=== PATIENT | male | born 2005 | race Caucasian/White ===

== ENCOUNTER 2023-08-10 20:47 | Emergency (ER) | payer OTHER, SELFPAY ==
[2023-08-10 20:49] VITALS: BP 152/88; PULSE 97; RESP 15; TEMP 36.6; O2SAT 99; BMI 20.8
--- NOTE | 2023-08-10 21:06 | ED.VIS.CHEST ---
HPI History of Present Illness Chief Complaint: Chest Other Detail of Chief Complaint: Epigastric pain that sharp and radiates upward into his chest Informant: patient Onset/Context/Timing Onset: Hours Activity at onset: sudden Timing: Continuous Quality: Positive for Aching and Sharp Location: - (Subxiphoid radiating into his chest) Current Severity: Mild Maximum Severity: Moderate Worsened By: Nothing Relieved By: Nothing Associated Symptoms: Positive for Dyspnea; Negative for Nausea, Vomiting, Diaphoresis, Cough, Fever, Lightheadedness, Acid Reflux or Palpitations Narrative Narrative: Patient is a 18-year-old male. He admits he vapes a lot. He states he was in bed. He was lying doing nothing when he developed tightness in his chest with shortness of breath and sharp subxiphoid pain radiating upwards into his chest. The pain did not radiate to his shoulders, arm, neck or jaw. The pain did not radiate through to his back. He states he ate pizza prior to this. He does report intolerance to greasy foods. He does not know if there is a family history of cholelithiasis or cholecystitis. He denies history of hiatal hernia. He denies history of reflux. He denies black or maroon-colored stool. He has no history of VTE. He has no risk factors for VTE. He denies leg pain, swelling discoloration. He denies upper respiratory tract infectious symptoms. He denies rash. He denies myalgia or arthralgias. Denies joint swelling. Prior Similar Symptoms: No Recent Illness/Hospitalization: No CVD Risk Factors: Negative for Hypertension, Diabetes, Hypercholesterolemia, Family History 1' </=55 or Smoking PE Risk Factors: Negative for Recent Travel/Surgery, Recent Immobilization, Prior DVT or PE, Cancer or OCP + Smoking + >/=35 TAD Risk Factors: Negative for Marfan's Syndrome, Hypertension or Family History PFSH PFSH Medical History no medical history no medical history Home Medications famotidine 40 mg tablet (Pepcid) 40 mg PO DAILY #30 tabs 08/10/23 [Rx Last Taken Unknown] Allergy/AdvReac Type Severity Reaction Status Date / Time Penicillins AdvReac Unknown PT UNSURE Verified 08/10/23 20:53 OF REACTION Surgical History no surgical history no surgical history Social History (Updated 08/10/23 @ 21:[address] Connor Holloway MD) Smoking Status: Current every day smoker tobacco type: e-cigarettes ROS ROS ED Constitutional Constitutional ED: Denies chills, fever(s), subjective or sweats Eyes Eyes: Reports none; Denies blurry vision or change in vision ENT ENT ED: Denies ear pain, rhinorrhea or sore throat Cardiovascular Cardiovascular: Reports as per HPI and chest pain; Denies orthopnea, palpitations, paroxysmal nocturnal dyspnea or racing heartbeat Respiratory/Chest Respiratory/Chest: Denies cough, dyspnea, dyspnea on exertion, orthopnea or paroxysmal nocturnal dyspnea Gastrointestinal Gastrointestinal: Reports abdominal pain; Denies constipation, diarrhea, melena, nausea or vomiting Genitourinary Genitourinary ED: Denies dysuria, hematuria or urinary frequency Musculoskeletal Musculoskeletal: Denies arthralgias, back pain or myalgias Integumentary Denies rash Neurologic Neurologic: Denies headache(s) or paresthesias Endocrine Endocrinology: Denies cold intolerance or heat intolerance Hematologic/Lymphatic Hematologic/Lymphatic: Denies easy bleeding or easy bruising EXAM Physical Exam Const Vital Signs: 08/10/23 20:49 08/10/23 21:18 Temperature 97.9 F Temperature Source Temporal Pulse Rate 97 Respiratory Rate 15 Respiratory Effort Normal Non-Labored Blood Pressure 152/88 H Blood Pressure Mean 109 Pulse Ox 99 Oxygen Delivery Method Room Air Positive well nourished, well developed and obese Constitutional Narrative: Patient appears flushed. General Appearance ED: well developed and NAD; Negative for pallor Nutritional Appearance: obese HEENT Reports TM's clear and moist mucous membranes normocephalic and atraumatic Tympanic Membrane ED: Yes TM's clear Eyes PERRL and EOMs intact bilaterally General Eye ED: Negative for pale conjunctiva or scleral icterus Neck no lymphadenopathy, supple and no JVD Chest Wall inspection of chest normal and palpation of chest normal Resp normal respiratory effort and clear to auscultation bilaterally Cardio regular rate, regular rhythm, S1 normal heart sound, S2 normal heart sound and no murmurs Peripheral Pulses: pulses 2+ throughout GI normal to inspection, nondistended, normoactive bowel sounds, soft to palpation, non-distended and no masses; Negative for non-tender or hepatosplenomegaly Back/Spine no CVA tenderness and no thoracic nor lumbar tenderness Extremity normal to inspection General Extremety ED: Negative for edema or pulses abnormal General Extremity: Negative for edema or pulses abnormal Neuro oriented x3, CN's II-XII intact bilaterally, no sensory deficits noted and gait normal Sensorium / Orientation: awake and alert Psych mental status grossly normal Skin no rashes or lesions noted and no wounds General Skin Exam: Negative for jaundice or pallor MDM MDM MDM Narrative Medical decision making narrative: Patient is PERC negative. Wells score is less than 3. This may represent GERD, esophageal spasm, peptic ulcer disease. This may also represent biliary colic. Plan is GI cocktail if this alleviates his pain and chest x-ray is normal will discharge with prescription for Pepcid. If the GI cocktail does not alleviate his pain with him having significant tenderness in the epigastric right upper quadrant will obtain liver enzymes, CBC and lipase. Radiography Chest X-Ray - ED: 2 View and Read by ED Physician (Independently interpreted by me at 2124 as negative. Cardiac silhouette and size normal. Slight hyperaeration. Lung parenchyma normal. No into pneumothorax. No evidence of pneumomediastinum. Perihilar regions normal. Osseous structures unremarkable.) Treatment and Re-Evaluation :: Patient was reassessed at 2124. His pain is resolved. Was informed that his chest x-ray is normal. Discharge Plan Triage Chief Complaint: Chest Other ED Provider: Holloway,Connor Dx/Rx/DC Orders Clinical Impression: Chest pain due to GERD Instructions: GERD Lifestyle Changes, ED GERD (Adult) Prescriptions: New famotidine [Pepcid] 40 mg tablet 40 mg PO DAILY Qty: 30 0RF Referrals: Maribel Thayer [Non-Staff] - 1-2 Weeks Disposition Disposition: Home, Self Care
--- NOTE | 2023-08-10 21:11 | RAD_ITS ---
EXAM: XR CHEST, 2 VIEWS CLINICAL INDICATION: Epigastric and chest pain TECHNIQUE: Frontal and lateral views of the chest. COMPARISON: No relevant prior studies available. FINDINGS: LUNGS AND PLEURAL SPACES: Unremarkable. No consolidation or edema. No pneumothorax. No effusion. HEART: Unremarkable. Cardiac silhouette not enlarged. MEDIASTINUM: Central airways and mediastinal contour are unremarkable. BONES/JOINTS: Unremarkable. No acute fracture. SOFT TISSUES: Unremarkable. RAD/Chest PA and Lateral IMPRESSION: No radiographic evidence of acute cardiopulmonary disease. Electronically Signed: Demarcus Godoy MD at 21:28 EST ,
[2023-08-10] MEDS: Mag Hydrox/Al Hydrox/Simeth 30 ML UDC PO (21:16)
== END 2023-08-10 21:46 | disposition home or self-care (01) ==
LOC: ED 21:45
PROVIDERS: Emergency Provider Emergency Medicine; Visit Provider Emergency Medicine
DX: R07.9 Chest pain, unspecified (principal); K21.9 Gastro-esophageal reflux disease without esophagitis; F17.290 Nicotine dependence, other tobacco product, uncomplicated
CPT/HCPCS: 71046; 99282

== ENCOUNTER 2025-02-11 13:45 | Emergency (ER) | payer OTHER, SELFPAY ==
[2025-02-11 13:46] VITALS: BP 163/107; PULSE 73; RESP 16; TEMP 36.6; O2SAT 98; BMI 20.8
[2025-02-11] MEDS: Fluorescein 1 MG STRIP 1 STRIP LEFT EYE (14:18)
--- OUTSIDE RECORDS SUMMARY | 2025-02-11 14:18 | XMS RPT_ITS | CCD ---
Author Organization [facility] Care Team Providers Care Mechanical Maintenance Technician Name Role Phone Connor Holloway Attending Unavailable Care Physician, No Primary Primary Care Unava ilable Unavailable Primary Care Provider Unavailabl e Allergies Allergy Classification Reported Allergen(s) Allergy Type Date of Onset Reaction(s) Facility (2 sources) Penicillins; Translations: [PENICILLINS] Drug allergy (disorder) 08-10-2023 [facility] Repository (2 sources) Penicillins Drug Allergy 12-15-2023 Rash [facility] Medications Current Medications Medication Drug Class(es) Dates Sig (Normalized) Sig (Original) ketoconazole 20 mg/ml medicated shampoo (2 sources) Azole Antifungal Start: 12-15-2023 End: 12-18-2023 ketoconazole (NIZORAL) 2 % shampoo Apply to affected area once daily for 3 days. Leave on for 5 minutes then wash off. 120 mL 1 12/15/2023 12/18/2023 Active Start: 12-15-2023 End: 12-15-2023 ketoconazole (NIZORAL) 2 % s hampoo Apply to affected area every 72 hours. 120 mL 1 12/15/2023 12/15/2023 Discontinued predniSONE 10 mg oral tablet (2 sources) Start: 04-17-2024 End: 04-26-2024 predniSONE (DELTASONE) 10 mg tablet Indications: Rash Take 4 tabs daily for 3 days, then 2 tabs daily for 3 days, then 1 tab daily for 3 days with food. 21 tablet 04/17/2024 04/26/2024 Active Problems Problem Classification Problem Date Documented Da te Episodic/Chronic Abdominal pain (1 source) Epigastric pain; Translations: [Epigastric pain] Onset: 08-17-2023 Episodic Other skin disorders (2 sources) Eruption; Translations: [Rash and other nonspecific skin eruption] 12-15-2023 Episodic Results Test Name Value Interpretation Reference Range Good Rob 04-17-2024 CNOV Office Visit ([facility] ) JONG SOLIS ([id number]) 1 M Date Time Provider Department 04/17/24 6:00 PM DIANNE MARTINEZ [facility] During your visit today, we recorded the following information about you: Temperature Pulse Respiration Blood pressure 98.3 degrees 78/minute 16/minute 134/76 Weight 70 kg Dianne Martinez APRN.CNP 04/17/2024 6:17 PM Signed Subjective HPI HPI Jong Solis is a 19 year old male who presents today for CC of itchy rash on torso. This started 2 months ago. Has tried nothing for relief. Symptoms are worsened by while at work, improves after work out of heat. Denies fever, uri s/s. .Patient presents with: Rash: all over,itching x 2 months No past medical history on file. No past surgical history on file. ALLERGIES Penicillins MEDICATIONS predniSONE (DELTASONE) 10 mg tablet Take 4 tabs daily for 3 days, then 2 tabs daily for 3 days, then 1 tab daily for 3 days with food. No family history on file. Social History Tobacco Use Smoking status: Every Day Types: Cigarettes Smokeless tobacco: Never ROS Objective Blood pressure 134/76, pulse 78, temperature 36.8 ?C (98.3 ?F), resp. rate 16, weight 70 kg (154 lb 5.2 oz), SpO2 98%. Physical Exam Constitutional: General: He is not in acute distress. Appearance: He is not toxic-appearing or diaphoretic. HENT: Head: Normocephalic and atraumatic. Pulmonary: Effort: Pulmonary effort is normal. No accessory muscle usage or respiratory distress. Skin: Neurological: Mental Status: He is alert and oriented to person, place, and time. ASSESSMENT/PLAN: 1. Rash - ICD9: 782.1, ICD10: R21 Possible allergy to work shirt -use medication as prescribed -follow up if symptoms persist, worsen, change - PREDNISONE 10 MG TABLET Dianne Martinez APRN.[employer]BER Allergies As of Date: 04/17/2024 Noted Allergy Reaction PENICILLINS 12/15/2023 2 - Rash Date Reviewed: 04/17/2024 Reviewed by: Barbara Palmer MA - Fully Assessed Reason for Visit: Rash [1087] Cmt: all over,itching x 2 months Primary Visit Diagnosis:Rash [R21] Order(s):predniSONE (DELTASONE) 10 mg tabletTake 4 tabs daily for 3 days, then 2 tabs daily for 3 days, then 1 tab daily for 3 days with food.Disp: 21 tabletRfl: 0 Prescriptions as of 04/17/2024 - predniSONE (DELTASONE) 10 mg tablet Take 4 tabs daily for 3 days, then 2 tabs daily for 3 days, then 1 tab daily for 3 days with food. Problem List As Of Date: 04/17/2024 (None) Prescriptions ordered this encounter Disp Refills Start End PREDNISONE 10 MG TABLET 21 t* 0 04/17/2024 04/17/2024 Sig: Take 4 tabs daily for 3 days, then 2 tabs daily for 3 days, then 1 tab daily for 3 days with food. PREDNISONE 10 MG TABLET 21 t* 0 04/17/2024 04/26/2024 Sig: Take 4 tabs daily for 3 days, then 2 tabs daily for 3 days, then 1 tab daily for 3 days with food. Medications Discontinued During This Encounter Prescriptions - predniSONE (DELTASONE) 10 mg tablet (Discontinued) Take 4 tabs daily for 3 days, then 2 tabs daily for 3 days, then 1 tab daily for 3 days with food. Encounter Status:Closed by DIANNE MARTINEZ on 04/17/24 [facility] Liane 12-15-2023 CNOV Office Visit ([facility] ) JONG SOLIS ([id number]) 1 M Date Time Provider Department 12/15/23 6:45 PM PRABHU HERRING [facility] During your visit today, we recorded the following information about you: Temperature Pulse Respiration Blood pressure 97.6 degrees 80/minute 16/minute 142/84 Weight 65 kg Prabhu Herring PA-C 12/15/2023 6:50 PM Signed [facility] [address] [place] [address], [address] [place] [address] Prabhu Herring PA-C 12/15/2023 6:59 PM Signed This note was created using [email or web address]. Subjective Jong Solis is a 18 year old male. HPI Presents with a rash on his back and abdomen over the past 2 months. He states is not itchy or bothering him. The past few days it has started to spread over his abdomen. He denies any known allergies. He denies any new foods. He states he does switch soap periodically but cannot remember specifically a new 1. No history of eczema or psoriasis. 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 Review of Systems Skin: Positive for rash. All other systems reviewed and are negative. History reviewed. No pertinent past medical history. Current Outpatient Medications Medication Sig Dispense Refill ketoconazole (NIZORAL) 2 % shampoo Apply to affected area every 72 hours. 120 mL 1 No current facility-administered medications for this visit. No past surgical history on file. No family history on file. Social History Tobacco Use Smoking status: Every Day Types: Cigarettes Smokeless tobacco: Never Objective BP 142/84 Pulse 80 Temp 36.4 ?C (97.6 ?F) (Tympanic) Resp 16 Wt 65 kg (143 lb 4.8 oz) SpO2 99% Physical Exam Vitals reviewed. Constitutional: Appearance: Normal appearance. HENT: Head: Normocephalic and atraumatic. Skin: General: Skin is warm and dry. Findings: Rash present. Comments: Patient has pink oval slightly raised areas coalesced diffusely on his back and starting on his abdomen and chest. No vesicles. No petechia or purpura. Neurological: Mental Status: He is alert. Assessment and Plan ASSESSMENT/PLAN: 1. Rash - ICD9: 782.1, ICD10: R21 Prescription for ketoconazole shampoo sent as this is likely tinea versicolor. Recommend follow-up with dermatology if it does not resolve. Patient agreeable with plan. - CONSULT TO DERMATOLOGY Prabhu Herring PA-C Allergies As of Date: 12/15/2023 Noted Allergy Reaction PENICILLINS 12/15/2023 2 - Rash Date Reviewed: 12/15/2023 Reviewed by: Alicia Sawyer LPN - Fully Assessed Reason for Visit: Rash [1087] Cmt: Rash on front and back of torso x several months Primary Visit Diagnosis:Rash [R21] Order(s):CONSULT TO DERMATOLOGY [9006] Order #: [id number]: 1 FUTURE ketoconazole (NIZORAL) 2 % shampooApply to affected area once daily for 3 days. Leave on for 5 minutes then wash off.Disp: 120 mLRfl: 1 Prescriptions as of 12/15/2023 - ketoconazole (NIZORAL) 2 % shampoo Apply to affected area once daily for 3 days. Leave on for 5 minutes then wash off. Problem List As Of Date: 12/15/2023 (None) Other instructions from your clinician: [facility] [address] [place] [address], [address] [place] [address] Prescriptions ordered this encounter Disp Refills Start End KETOCONAZOLE 2 % SHAMPOO 120 * 1 12/15/2023 12/15/2023 Route: TOPICAL Sig: Apply to affected area every 72 hours. KETOCONAZOLE 2 % SHAMPOO 120 * 1 12/15/2023 12/18/2023 Route: TOPICAL Sig: Apply to affected area once daily for 3 days. Leave on for 5 minutes then wash off. Medications Discontinued During This Encounter Prescriptions - ketoconazole (NIZORAL) 2 % shampoo (Discontinued) Apply to affected area every 72 hours. Encounter Status:Closed by PRABHU HERRIGN on 12/15/23 Normal [facility] Chest PA and Lateralon 08-10 Chest PA and Lateral [facility] [address] [place] [address] Chest PA and Lateral MR#: [id number] Acct: [id number] Name: JONG SOLIS Rep #: [id number] : 2005 M 18 From: Demarcus Godoy MD PCP: Status: PRE ER Study: Chest PA and Lateral Date of Exam: 08/10/23 Exam# [id number] Ordering Dr: Connor Holloway MD [id number] EXAM: XR CHEST, 2 VIEWS CLINICAL INDICATION: Epigastric and chest pain TECHNIQUE: Frontal and lateral views of the chest. COMPARISON: No relevant prior studies available. FINDINGS: LUNGS AND PLEURAL SPACES: Unremarkable. No consolidation or edema. No pneumothorax. No effusion. HEART: Unremarkable. Cardiac silhouette not enlarged. MEDIASTINUM: Central airways and mediastinal contour are unremarkable. BONES/JOINTS: Unremarkable. No acute fracture. SOFT TISSUES: Unremarkable. RAD/Chest PA and Lateral IMPRESSION: No radiographic evidence of acute cardiopulmonary disease. Electronically Signed: Demarcus Godoy MD at 21:28 EST , CC: Dr. Connor Holloway MD Engagement Manager: Signed Normal [facility] Emergency Department Summary on 08-10-2023 Emergency Department Summary [facility] System Medical Records Department [address] [place] [address] Emergency Department Summary 08/10/23 MR#: [id number] Acct: [id number] Name: JONG SOLIS Rep #: [id number] : 2005 18 From: Connor Holloway MD PCP: Status:PRE ER Location: ED HPI History of Present Illness Chief Complaint: Chest Other Detail of Chief Complaint: Epigastric pain that sharp and radiates upward into his chest Informant: patient Onset/Context/Timing Onset: Hours Activity at onset: sudden Timing: Continuous Quality: Positive for Aching and Sharp Location: - (Subxiphoid radiating into his chest) Current Severity: Mild Maximum Severity: Moderate Worsened By: Nothing Relieved By: Nothing Associated Symptoms: Positive for Dyspnea; Negative for Nausea, Vomiting, Diaphoresis, Cough, Fever, Lightheadedness, Acid Reflux or Palpitations Narrative Narrative: Patient is a 18-year-old male. He admits he vapes a lot. He states he was in bed. He was lying doing nothing when he developed tightness in his chest with shortness of breath and sharp subxiphoid pain radiating upwards into his chest. The pain did not radiate to his shoulders, arm, neck or jaw. The pain did not radiate through to his back. He states he ate pizza prior to this. He does report intolerance to greasy foods. He does not know if there is a family history of cholelithiasis or cholecystitis. He denies history of hiatal hernia. He denies history of reflux. He denies black or maroon-colored stool. He has no history of VTE. He has no risk factors for VTE. He denies leg pain, swelling discoloration. He denies upper respiratory tract infectious symptoms. He denies rash. He denies myalgia or arthralgias. Denies joint swelling. Prior Similar Symptoms: No Recent Illness/Hospitalizatio n: No CVD Risk Factors: Negative for Hypertension, Diabetes, Hypercholesterolemia, Family History 1' or Smoking PE Risk Factors: Negative for Recent Travel/Surgery, Recent Immobilization, Prior DVT or PE, Cancer or OCP + Smoking + >/=35 TAD Risk Factors: Negative for Marfan's Syndrome, Hypertension or Family History PFSH PFSH Medical History no medical history no medical history Home Medications famotidine 40 mg tablet (Pepcid) 40 mg PO DAILY #30 tabs 08/10/23 [Rx Last Taken Unknown] Allergy/AdvReac Type Severity Reaction Status Date / Time Penicillins AdvReac Unknown PT UNSURE Verified 08/10/23 20:53 OF REACTION Surgical History no surgical history no surgical history Social History (Updated 08/10/23 @ 21:[address] Connor Holloway MD) Smoking Status: Current every day smoker tobacco type: e-cigarettes ROS ROS ED Constitutional Constitutional ED: Denies chills, fever(s), subjective or sweats Eyes Eyes: Reports none; Denies blurry vision or change in vision ENT ENT ED: Denies ear pain, rhinorrhea or sore throat Cardiovascular Cardiovascular: Reports as per HPI and chest pain; Denies orthopnea, palpitations, paroxysmal nocturnal dyspnea or racing heartbeat Respiratory/Chest Respiratory/Chest: Denies cough, dyspnea, dyspnea on exertion, orthopnea or paroxysmal nocturnal dyspnea Gastrointestinal Gastrointestinal: Reports abdominal pain; Denies constipation, diarrhea, melena, nausea or vomiting Genitourinary Genitourinary ED: Denies dysuria, hematuria or urinary frequency Musculoskeletal Musculoskeletal: Denies arthralgias, back pain or myalgias Integumentary Denies rash Neurologic Neurologic: Denies headache(s) or paresthesias Endocrine Endocrinology: Denies cold intolerance or heat intolerance Hematologic/Lymphatic Hematologic/Lymphatic: Denies easy bleeding or easy bruising EXAM Physical Exam Const Vital Signs: 08/10/23 20:49 08/10/23 21:18 Temperature 97.9 F Temperature Source Temporal Pulse Rate 97 Respiratory Rate 15 Respiratory Effort Normal Non-Labored Blood Pressure 152/88 H Blood Pressure Mean 109 Pulse Ox 99 Oxygen Delivery Method Room Air Positive well nourished, well developed and obese Constitutional Narrative: Patient appears flushed. General Appearance ED: well developed and NAD; Negative for pallor Nutritional Appearance: obese HEENT Reports TM's clear and moist mucous membranes normocephalic and atraumatic Tympanic Membrane ED: Yes TM's clear Eyes PERRL and EOMs intact bilaterally General Eye ED: Negative for pale conjunctiva or scleral icterus Neck no lymphadenopathy, supple and no JVD Chest Wall inspection of chest normal and palpation of chest normal Resp normal respiratory effort and clear to auscultation bilaterally Cardio regular rate, regular rhythm, S1 normal heart sound, S2 normal heart sound and no murmurs Peripheral Pulses: pulses 2+ throughout GI normal to inspection, nondistended, normoactive bowel sound (more content not included)... Normal [facility] Vital Signs Date Time Vital Sign Value Performing Clinician Daniela sommers 04-17-2024 18:02-0400 Body temperature 98.29 [degF] Dianne Martinez APRN.CNP Work Phone: [facility] 04-17-2024 18:02-0400 Body weight 70 kg Dianne Martinez APRN.CNP Work Phone: [facility] 04-17-2024 18:02-0400 Diastolic blood pressure 76 mm[Hg] Dianne Martinez OVERHAULER HELPER.[employer] CLE[employer]ER [employer]UMBER Work Phone: [facility] 04-17-2024 18:02-0400 Heart rate 78 /min Dianne Martinez OVERHAULER HELPER.[employer] CLE[employer]UMBER Work Phone: [facility] 04-17-2024 18:02-0400 Respiratory rate 16 /min Dianne Martinez OVERHAULER HELPER.[employer] CLE[employer]UMBER Work Phone: [facility] 04-17-2024 18:02-0400 SaO2% (BldA) [Mass fraction] 98 % Dianne Martinez OVERHAULER HELPER.[employer] CLE[employer]ER [employer]UMBER Work Phone: [facility] 04-17-2024 18:02-0400 Systolic blood pressure 134 mm[Hg] Dianne Martinez OVERHAULER HELPER.DR[employer] CLEANER [employer]UMBER Work Phone: [facility] 12-15-2023 18:35-0400 Body temperature 97.59 [degF] Prabhu Athy PA-C Work Phone: [facility] 12-15-2023 18:35-0400 Body weight 65 kg Prabhu Athy PA-C Work Phone: [facility] 12-15-2023 18:35-0400 Diastolic blood pressure 84 mm[Hg] Prabhu Athy PA-C Work Phone: [facility] 12-15-2023 18:35-0400 Heart rate 80 /min Parbhu Athy PA-C Work Phone: [facility] 12-15-2023 18:35-0400 Respiratory rate 16 /min Prabhu Athy PA-C Work Phone: [facility] 12-15-2023 18:35-0400 SaO2% (BldA) [Mass fraction] 99 % Prabhu Athy PA-C Work Phone: [facility] 12-15-2023 18:35-0400 Systolic blood pressure 142 mm[Hg] Prabhu Athy PA-C Work Phone: [facility] Encounters Encounter Date Encounter Type Care Provider Facility Start: 04-17-2024 End: 04-17-2024 ambulatory Facility:[facility] Start: 04-17-2024 End: 04-17-2024 Patient encounter procedure Dianne Martinez APRN.DR[employer] CLEANER [employer]UMBER Work Phone: [facility] Comment on above: Rash (Primary Dx) Start: 12-15-2023 End: 12-15-2023 ambulatory Facility:[facility] Start: 12-15-2023 End: 12-15-2023 Patient encounter procedure Prabhu Herring PA-C Work Phone: [facility] Comment on above: Rash (Primary Dx) Start: 08-10-2023 End: 08-10-2023 Emergency department patient visit [facility] Facility:[facility] Plan of Treatment Date Care Activity Detail Author Start: 04-23-2024 Influenza vaccination [facility] Start: 08-23-2023 Behavioral Health Screening Behavioral Health Screening [facility] Start: 04-23-2023 Covid-19 Vaccine ( season) Covid-19 Vaccine ( season) [facility] Start: 2022 Hepatitis B Vaccine (1 of 3 - 19+ 3-dose series) Hepatitis B Vaccine (1 of 3 - 19+ 3-dose series) [facility] Start: 2022 Urine microalbumin profile DTa P,Tdap,Td Vaccine (1 - Tdap) [facility] Start: 2021 Anxiety Screening Anxiety Screening [facility] Start: 2021 Depression Screening Depression Scre ening [facility] Start: 2021 Hepatitis C screening Hepatitis C Sc reening [facility] Start: 2021 HIV screening HIV Screening [facility] Start: 2019 Meningococcal B Vacc ine: Consider Based On Risk (1 of 2 - Patient Seeks Protection) Meningococcal B Vaccine: Consider Based On Risk (1 of 2 - Patient Seeks Protection) [facility] Start: 2018 HPV Vaccine (1 - Mal e 3-dose series) HPV Vaccine (1 - Male 3-dose series) [facility] Start: 2017 Peds To Adult Transi tion Annual Assessment Peds To Adult Transition Annual Assessment [facility] Start: 2015 Peds To Adult Transi tion Initial Discussion Peds To Adult Transition Initial Discussion [facility] Start: 2009 Pneumococcal vaccination Pneum ococcal Vaccine (1 of 2 - PCV) [facility] Payers Date Payer Category Payer Self-pay 2022 Unknown MMO [employer] PPO [id number] 2022-Present [phone] [address] [place] [address] PPO [id number] 2022 Unknown [id number] Unknown [id number] Social History Date Type Detail Facility Start: 12-15-2023 Tobacco smoking stat [facility] Smokes tobacco daily [facility] History of tobacco use Cigarette Smoker C [facility] Start: 12-15-2023 Tobacco use and exposure Smoke less tobacco non-user [facility] Start: 12-15-2023 End: 04-17-2024 History of Social function [facility] Start: 12-15-2023 End: 04-17-2024 Tobacco use panel [facility] Start: 2005 Sex Assigned At Not on file C [facility] Progress note 04-17-2024 Note Date & Type Note Facility 04-17-2024 Note HNO ID: [id number] Author: DIANNE MARTINEZ APRN.[employer] Service: ? Author Type: Nurse Practitioner Type: Progress Notes Filed: 04/17/2024 18:17 Note Text: Subjective HPI HPI Jong Solis is a 19 year old male who presents today for CC of itchy rash on torso. This started 2 months ago. Has tried nothing for relief. Symptoms are worsened by while at work, improves after work out of heat. Denies fever, uri s/s. .Patient presents with: Rash: all over,itching x 2 months No past medical history on file. No past surgical history on file. ALLERGIES Penicillins MEDICATIONS predniSONE (DELTASONE) 10 mg tablet Take 4 tabs daily for 3 days, then 2 tabs daily for 3 days, then 1 tab daily for 3 days with food. No family history on file. Social History Tobacco Use Smoking status: Every Day Types: Cigarettes Smokeless tobacco: Never ROS Objective Blood pressure 134/76, pulse 78, temperature 36.8 ?C (98.3 ?F), resp. rate 16, weight 70 kg (154 lb 5.2 oz), SpO2 98%. Physical Exam Constitutional: General: He is not in acute distress. Appearance: He is not toxic-appearing or diaphoretic. HENT: Head: Normocephalic and atraumatic. Pulmonary: Effort: Pulmonary effort is normal. No accessory muscle usage or respiratory distress. Skin: Neurological: Mental Status: He is alert and oriented to person, place, and time. ASSESSMENT/PLAN: 1. Rash - ICD9: 782.1, ICD10: R21 Possible allergy to work shirt -use medication as prescribed -follow up if symptoms persist, worsen, change - PREDNISONE 10 MG TABLET Dianne Martinez APRN.[facility] History of Present illness Narrative 04-17-2024 Dianne Martinez APRN.KATHERIN - 04/17/2024 6:14 PM EDT Note Date & Type Note Facility 04-17-2024 History of Presen t illness Narrative Images from the original note were not included. Subjective HPI HPI Jong Solis is a 19 year old male who presents today for CC of itchy rash on torso. This started 2 months ago. Has tried nothing for relief. Symptoms are worsened by while at work, improves after work out of heat. Denies fever, uri s/s. .Patient presents with: Rash: all over,itching x 2 months No past medical history on file. No past surgical history on file. ALLERGIES Penicillins MEDICATIONS predniSONE (DELTASONE) 10 mg tablet Take 4 tabs daily for 3 days, then 2 tabs daily for 3 days, then 1 tab daily for 3 days with food. No family history on file. Social History Tobacco Use Smoking status: Every Day Types: Cigarettes Smokeless tobacco: Never ROS Objective Blood pressure 134/76, pulse 78, temperature 36.8 C (98.3 F), resp. rate 16, weight 70 kg (154 lb 5.2 oz), SpO2 98%. Physical Exam Constitutional: General: He is not in acute distress. Appearance: He is not toxic-appearing or diaphoretic. HENT: Head: Normocephalic and atraumatic. Pulmonary: Effort: Pulmonary effort is normal. No accessory muscle usage or respiratory distress. Skin: Neurological: Mental Status: He is alert and oriented to person, place, and time. ASSESSMENT/PLAN: 1. Rash - ICD9: 782.1, ICD10: R21 Possible allergy to work shirt -use medication as prescribed -follow up if symptoms persist, worsen, change - PREDNISONE 10 MG TABLET Dianne Martinez APRN.[employer] documented in this encounter [facility] Progress note 12-15-2023 Note Date & Type Note Facility 12-15-2023 Note HNO ID: [id number] Author: PRABHU HERRING PA-C Service: ? Author Type: Physician Drama Critic Type: Progress Notes Filed: 12/15/2023 18:59 Note Text: This note was created using [employer]. Subjective Jong Solis is a 18 year old male. HPI Presents with a rash on his back and abdomen over the past 2 months. He states is not itchy or bothering him. The past few days it has started to spread over his abdomen. He denies any known allergies. He denies any new foods. He states he does switch soap periodically but cannot remember specifically a new 1. No history of eczema or psoriasis. 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 Review of Systems Skin: Positive for rash. All other systems reviewed and are negative. History reviewed. No pertinent past medical history. Current Outpatient Medications Medication Sig Dispense Refill ketoconazole (NIZORAL) 2 % shampoo Apply to affected area every 72 hours. 120 mL 1 No current facility-administered medications for this visit. No past surgical history on file. No family history on file. Social History Tobacco Use Smoking status: Every Day Types: Cigarettes Smokeless tobacco: Never Objective BP 142/84 Pulse 80 Temp 36.4 ?C (97.6 ?F) (Tympanic) Resp 16 Wt 65 kg (143 lb 4.8 oz) SpO2 99% Physical Exam Vitals reviewed. Constitutional: Appearance: Normal appearance. HENT: Head: Normocephalic and atraumatic. Skin: General: Skin is warm and dry. Findings: Rash present. Comments: Patient has pink oval slightly raised areas coalesced diffusely on his back and starting on his abdomen and chest. No vesicles. No petechia or purpura. Neurological: Mental Status: He is alert. Assessment and Plan ASSESSMENT/PLAN: 1. Rash - ICD9: 782.1, ICD10: R21 Prescription for ketoconazole shampoo sent as this is likely tinea versicolor. Recommend follow-up with dermatology if it does not resolve. Patient agreeable with plan. - CONSULT TO DERMATOLOGY Prabhu Herring PA-C [facility] History of Present illness Narrative 12-15-2023 Prabhu Herring PA-C - 12/15/2023 6:53 PM EDT Note Date & Type Note Facility 12-15-2023 History of Presen t illness Narrative Images from the original note were not included. This note was created using [employer]. Subjective Jong Solis is a 18 year old male. HPI Presents with a rash on his back and abdomen over the past 2 months. He states is not itchy or bothering him. The past few days it has started to spread over his abdomen. He denies any known allergies. He denies any new foods. He states he does switch soap periodically but cannot remember specifically a new 1. No history of eczema or psoriasis. 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 Review of Systems Skin: Positive for rash. All other systems reviewed and are negative. History reviewed. No pertinent past medical history. Current Outpatient Medications Medication Sig Dispense Refill ketoconazole (NIZORAL) 2 % shampoo Apply to affected area every 72 hours. 120 mL 1 No current facility-administered medications for this visit. No past surgical history on file. No family history on file. Social History Tobacco Use Smoking status: Every Day Types: Cigarettes Smokeless tobacco: Never Objective BP 142/84 Pulse 80 Temp 36.4 C (97.6 F) (Tympanic) Resp 16 Wt 65 kg (143 lb 4.8 oz) SpO2 99% Physical Exam Vitals reviewed. Constitutional: Appearance: Normal appearance. HENT: Head: Normocephalic and atraumatic. Skin: General: Skin is warm and dry. Findings: Rash present. Comments: Patient has pink oval slightly raised areas coalesced diffusely on his back and starting on his abdomen and chest. No vesicles. No petechia or purpura. Neurological: Mental Status: He is alert. Assessment and Plan ASSESSMENT/PLAN: 1. Rash - ICD9: 782.1, ICD10: R21 Prescription for ketoconazole shampoo sent as this is likely tinea versicolor. Recommend follow-up with dermatology if it does not resolve. Patient agreeable with plan. - CONSULT TO DERMATOLOGY Prabhu Herring PA-C documented in this encounter [facility] Instructions 12-15-2023 Patient Instructions Note Date & Type Note Facility 12-15-2023 Instructions Prabhu Herring PA-C - 12/15/2023 6:50 PM EDT [facility] [address] [place] [address], [address] [place] [id number] documented in this encounter [facility] Evaluation note Note Date & Type Note Facility Evaluation note Diagnosis Rash- Primary Rash and other nonspecific skin eruption documented in this encounter [facility] Evaluation note Note Date & Type Note Facility Evaluation note Diagnosis Rash- Primary Rash and other nonspecific skin eruption documented in this encounter [facility] Summary Purpose Family History No Family History Records FoundNo Family History Records Found Advance Directives No Advanced Directives Records FoundNo Advanced Directives Records Found Reason for Referral Specialty Diagnoses / Procedures Referred By Kelsea chao Referred To Contact Dermatology Diagnoses Rash Procedures CONSULT TO DERMATOLOGY Prabhu Herring PA-C [address] [place] [address] Referral ID Status Reason Start Date Expiration Date Visits Requested Visits Authorized [id number] Ref Not Required PCP Requested Referral 12/15/2023 12/14/2024 1 1 Additional Source Comments (unrecognized sect ion and content) No Status Records FoundNo Status Records Found INFORMATION SOURCE (unrecogn ized section and content) DATE CREATED AUTHOR 08/19/2023 [facility] DATE CREATED AUTHOR AUTHOR'S LUNA MAK 04/19/2024 [facility] Source Comments (unrecognize d section and content) In the event this informatio n is protected by the Federal Confidentiality of Alcohol and Drug Abuse Patient Records regulations: The Federal rules restrict any use of the information to criminally investigate or prosecute any alcohol or drug abuse patient[facility] event this information is protected by the Federal Confidentiality of Alcohol and Drug Abuse Patient Records regulations: The Federal rules restrict any use of the information to criminally investigate or prosecute any alcohol or drug abuse patient.[facility] Reason for Visit (unrecogniz ed section and content) Reason Comments Rash Rash on front and ba ck of torso x several months Reason Comments Rash all over,itching x 2 months FOR RECORDS PERTAINING TO PATIENTS WHO ARE OR HAVE BEEN ENROLLED IN A CHEMICAL DEPENDENCY/SUBSTANCEABUSE PROGRAM, SOME INFORMATION MAY BE OMITTED. This clinical summary was aggregated from multiple sources. Caution should be exercised in using it in the provision of clinical care. This summary normalizes information from multiple sources, and as a consequence, information in this document may materially change the coding, format and clinical context of patient data. In addition, data may be omitted in some cases. CLINICAL DECISIONS SHOULD BE BASED ON THE PRIMARY CLINICAL RECORDS. [employer] [facility]. provides no warranty or guarantee of the accuracy or completeness of information in this document.
[2025-02-11] MEDS: Tetracaine 0.5% Ophthalmic Bottle 1 DRP LEFT EYE (14:19)
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
[2025-02-11 15:12] VITALS: BP 140/61; PULSE 66; RESP 18; TEMP 37.1; O2SAT 99
== END 2025-02-11 15:13 | disposition home or self-care (01) ==
PROVIDERS: Emergency Provider Emergency Medicine; Visit Provider Emergency Medicine
DX: T52.0X1A Toxic effect of petroleum products, accidental (unintentional), initial encounter (principal); H10.212 Acute toxic conjunctivitis, left eye; H11.32 Conjunctival hemorrhage, left eye; F17.290 Nicotine dependence, other tobacco product, uncomplicated; Z97.3 Presence of spectacles and contact lenses
CPT/HCPCS: 99283

== ENCOUNTER 2025-02-25 21:35 | Emergency (ER) | payer OTHER, SELFPAY ==
[2025-02-25 21:36] VITALS: BP 140/102; PULSE 99; RESP 16; TEMP 36; O2SAT 98; BMI 23.3
[2025-02-25 22:43] VITALS: BP 140/102; PULSE 99; RESP 16; TEMP 36; O2SAT 98
== END 2025-02-25 22:43 | disposition home or self-care (01) ==
PROVIDERS: Emergency Provider Emergency Medicine; PCP Family Medicine; Visit Provider Emergency Medicine
DX: S50.02XA Contusion of left elbow, initial encounter (principal); F17.290 Nicotine dependence, other tobacco product, uncomplicated; V86.06XA Driver of dirt bike or motor/cross bike injured in traffic accident, initial encounter
CPT/HCPCS: 73080; 99282